=== PATIENT | female | born 1955 | race Hispanic/Latino ===

== ENCOUNTER → 2023-03-21 | Outpatient (REF) | payer MEDICARE | LOC: DX 09:43 | PROVIDERS: ATTEND Internal Medicine | DX: R53.1 Weakness (principal); G71.00 Muscular dystrophy, unspecified | CPT/HCPCS: 74230 ==

== ENCOUNTER 2024-04-06 20:45 | Inpatient (IN) | payer MEDICARE ==
[~2024-04-06] VITALS: Ht 177.8 cm; Wt 45.4 kg
[~2024-04-06 20:45] MED LIST: CYCLOBENZAPRINE5 MG PO; ULTRAM 50MG50 MG PO
[2024-04-06 21:11] LABS: BASOPHILS % 0.1 % (0.0-1.0); HEMATOCRIT 35.7 % (34.2-44.1); HEMOGLOBIN 10.3 g/dL (12.0-16.0); LYMPHOCYTES # (AUTO) 0.9 (1.0-3.2); LYMPHOCYTES % 5.1 % (18.0-39.1); MEAN CORPUSCULAR HEMOGLOBIN 30.1 pg (28-32); MEAN CORPUSCULAR HGB CONC 28.9 g/dL (31-35); MEAN CORPUSCULAR VOLUME 104.4 fL (81-99); MONOCYTES # (AUTO) 1.7 (0.2-0.8); MONOCYTES % 9.9 % (4.4-11.3); NEUTROPHILS # (AUTO) 14.1 (2.1-6.9); RED BLOOD COUNT 3.42 x10e6/uL (3.6-5.1); RED CELL DISTRIBUTION WIDTH 14.6 % (11.7-14.4); WHITE BLOOD COUNT 16.78 x10e3/uL (4.8-10.8)
[2024-04-06] MEDS: SODIUM CHLORIDE 0.9% 1000ML 1,000 ML IV ONE (21:11)
[2024-04-06 21:15] LABS: PLATELET COUNT 72 x10e3/uL (140-360)
[2024-04-06 21:26] LABS: ALBUMIN/GLOBULIN RATIO 0.9 (0.8-2.0); ANION GAP 16.4 mmol/L (8-16); BILIRUBIN,TOTAL 0.5 mg/dL (0.2-1.2); CREATININE, SERUM 0.63 mg/dL (0.57-1.11); TOTAL PROTEIN 6.5 g/dL (6.5-8.1)
[2024-04-06 21:33] LABS: TROPONIN I 0.055 ng/mL (0-0.300)
[2024-04-06 21:36] LABS: POTASSIUM 3.4 mmol/L (3.5-5.1)
[2024-04-07] VITALS (9 sets, daily range): BP systolic 94–145; BP diastolic 72–86; PULSE 60–78; RESP 12–19; TEMP 97.3–98.9; O2SAT 90–100
[2024-04-07] MEDS: SODIUM CHLORIDE 0.9% 1000ML 1,000 ML IV ONE (01:02)
[2024-04-07] MEDS ORDERED: SODIUM CHLORIDE 0.9% 1000ML 1,000 ML ONE (01:04)
[2024-04-07] MEDS ORDERED: ONDANSETRON HCL INJ 2MG/ML 2ML 2 MG/ML VIAL IV PRN (02:30)
[2024-04-07] MEDS ORDERED: Vancomycin IV 1 GM in SODIUM CHLORIDE 0.9% 250ML 250 ML IV SCH ×3 (02:30→15:00)
[2024-04-07 02:37] LABS: CLARITY,URINE CLEAR (CLEAR); COLOR,URINE YELLOW (YELLOW)
[2024-04-07 02:38] LABS: BILIRUBIN,URINE NEGATIVE (NEGATIVE); GLUCOSE, URINE NEGATIVE (NEGATIVE); KETONES,URINE NEGATIVE (NEGATIVE); LEUKOCYTE ESTERASE ,URINE NEGATIVE (NEGATIVE); NITRITE,URINE NEGATIVE (NEGATIVE); PH,URINE 5.5 (5 - 7); PROTEIN,URINE DIPSTICK NEGATIVE (NEGATIVE); URINE UROBILINOGEN 0.2 mg/dL (0.2 - 1)
[2024-04-07] MEDS ORDERED: Vancomycin IV 1 GM VIAL ONE (02:38)
[2024-04-07] MEDS ORDERED: SODIUM CHLORIDE 0.9% 250ML 250 ML ONE (02:38)
[2024-04-07] MEDS ORDERED: PIPERACILLIN/TAZOBACTAM 3.375 GM VIAL ONE (02:38)
[2024-04-07 02:41] LABS: BACTERIA,URINE MODERATE /HPF; EPITHELIAL CELLS,URINE FEW /LPF; WBC,URINE (MAN) 0-5 /HPF (0-5)
[2024-04-07 02:42] LABS: YEAST,URINE MODERATE
[2024-04-07] MEDS: SODIUM CHLORIDE 0.9% 1000ML 1,000 ML IV SCH (03:00)
[2024-04-07] MEDS ORDERED: Vancomycin IV 1 GM in SODIUM CHLORIDE 0.9% 250ML 250 ML IV ONE (03:15)
[2024-04-08] VITALS (7 sets, daily range): BP systolic 111–135; BP diastolic 69–89; PULSE 81–99; RESP 15–20; TEMP 97.7–98.9; O2SAT 94–100
[2024-04-08 06:39] LABS: EOSINOPHILS % 0.1 % (0.0-6.0); HEMOGLOBIN 8.2 g/dL (12.0-16.0); LYMPHOCYTES # (AUTO) 0.5 (1.0-3.2); LYMPHOCYTES % 6.5 % (18.0-39.1); MEAN CORPUSCULAR HEMOGLOBIN 30.8 pg (28-32); MEAN CORPUSCULAR HGB CONC 29.3 g/dL (31-35); MEAN CORPUSCULAR VOLUME 105.3 fL (81-99); MONOCYTES # (AUTO) 0.7 (0.2-0.8); MONOCYTES % 8.8 % (4.4-11.3); NEUTROPHILS # (AUTO) 6.8 (2.1-6.9); NEUTROPHILS % 83.3 % (38.7-80.0); PLATELET COUNT 50 x10e3/uL (140-360); RED BLOOD COUNT 2.66 x10e6/uL (3.6-5.1); RED CELL DISTRIBUTION WIDTH 14.1 % (11.7-14.4); WHITE BLOOD COUNT 8.17 x10e3/uL (4.8-10.8)
[2024-04-08 07:06] LABS: ALBUMIN 1.9 g/dL (3.5-5.0); ALBUMIN/GLOBULIN RATIO 0.8 (0.8-2.0); ANION GAP 10.1 mmol/L (8-16); BILIRUBIN,TOTAL 0.3 mg/dL (0.2-1.2); CALCIUM 7.7 mg/dL (8.4-10.2); CREATININE, SERUM 0.48 mg/dL (0.57-1.11); TOTAL PROTEIN 4.4 g/dL (6.5-8.1)
[2024-04-08 07:12] LABS: POTASSIUM 3.1 mmol/L (3.5-5.1)
[2024-04-09] VITALS (7 sets, daily range): BP systolic 125–147; BP diastolic 68–78; PULSE 70–94; RESP 17–18; TEMP 97.6–98.6; O2SAT 94–98
[2024-04-10] VITALS: BP 119/70; PULSE 70; RESP 20; TEMP 97.8; O2SAT 95
[2024-04-10 04:00] VITALS: BP 143/68; PULSE 68; RESP 20; TEMP 97.6; O2SAT 95
[2024-04-10 08:56] VITALS: BP 164/90; PULSE 94; RESP 18; TEMP 97.6; O2SAT 96
[2024-04-10 11:54] VITALS: BP 155/77; PULSE 81; RESP 18; TEMP 98.7; O2SAT 100
[2024-04-10 16:19] VITALS: BP 141/83; PULSE 74; RESP 14; TEMP 98.2; O2SAT 95
[2024-04-10 20:00] VITALS: BP 124/79; PULSE 78; RESP 16; TEMP 98.1; O2SAT 99
[2024-04-11] VITALS (9 sets, daily range): BP systolic 135–149; BP diastolic 70–83; PULSE 67–90; RESP 16–19; TEMP 97.2–98.9; O2SAT 95–100
[2024-04-12] VITALS (9 sets, daily range): BP systolic 121–144; BP diastolic 70–93; PULSE 66–101; RESP 16–19; TEMP 97.2–98; O2SAT 91–100
[2024-04-12] MEDS: ALBUTEROL/IPRATROPIUM 3 ML NEB NEB PRN (13:40)
[2024-04-13] VITALS (11 sets, daily range): BP systolic 114–158; BP diastolic 64–112; PULSE 75–102; RESP 16–20; TEMP 97.6–98.8; O2SAT 91–100
[2024-04-13 08:06] LABS: BASOPHILS % 0.1 % (0.0-1.0); EOSINOPHILS % 0.1 % (0.0-6.0); HEMATOCRIT 32.6 % (34.2-44.1); HEMOGLOBIN 9.7 g/dL (12.0-16.0); LYMPHOCYTES # (AUTO) 0.8 (1.0-3.2); LYMPHOCYTES % 9.6 % (18.0-39.1); MEAN CORPUSCULAR HEMOGLOBIN 30.1 pg (28-32); MEAN CORPUSCULAR HGB CONC 29.8 g/dL (31-35); MEAN CORPUSCULAR VOLUME 101.2 fL (81-99); MONOCYTES # (AUTO) 1.4 (0.2-0.8); MONOCYTES % 16.7 % (4.4-11.3); NEUTROPHILS # (AUTO) 5.9 (2.1-6.9); NEUTROPHILS % 72.4 % (38.7-80.0); PLATELET COUNT 85 x10e3/uL (140-360); RED BLOOD COUNT 3.22 x10e6/uL (3.6-5.1); RED CELL DISTRIBUTION WIDTH 13.7 % (11.7-14.4); WHITE BLOOD COUNT 8.09 x10e3/uL (4.8-10.8)
[2024-04-13 08:39] LABS: ALBUMIN 2.2 g/dL (3.5-5.0); ALBUMIN/GLOBULIN RATIO 0.6 (0.8-2.0); ANION GAP 13.8 mmol/L (8-16); BILIRUBIN,TOTAL 0.6 mg/dL (0.2-1.2); CALCIUM 8.9 mg/dL (8.4-10.2); CREATININE, SERUM 0.51 mg/dL (0.57-1.11); POTASSIUM 3.8 mmol/L (3.5-5.1); TOTAL PROTEIN 5.6 g/dL (6.5-8.1)
[2024-04-13 09:41] LABS: LYMPHOCYTES % (MANUAL) 5 % (19-48); MONOCYTES % (MANUAL) 10 % (3.4-9.0); NEUTROPHILS % (MANUAL) 85 % (40-74)
[2024-04-13 09:42] LABS: HYPOCHROMASIA MODERATE; PLATELET ESTIMATE MODERATELY DECREASED; PLATELET MORPHOLOGY COMMENT NORMAL; POLYCHROMASIA FEW; RBC MORPHOLOGY COMMENT ABNORMAL
[2024-04-14] VITALS (9 sets, daily range): BP systolic 117–146; BP diastolic 65–86; PULSE 68–84; RESP 16–18; TEMP 97.3–98.2; O2SAT 92–100
[2024-04-15] VITALS (9 sets, daily range): BP systolic 121–138; BP diastolic 77–92; PULSE 71–90; RESP 16–20; TEMP 97.3–97.9; O2SAT 96–100
[2024-04-15 06:26] LABS: HEMATOCRIT 26.4 % (34.2-44.1); HEMOGLOBIN 8.2 g/dL (12.0-16.0); LYMPHOCYTES # (AUTO) 0.7 (1.0-3.2); LYMPHOCYTES % 18.8 % (18.0-39.1); MEAN CORPUSCULAR HEMOGLOBIN 30.1 pg (28-32); MEAN CORPUSCULAR HGB CONC 31.1 g/dL (31-35); MEAN CORPUSCULAR VOLUME 97.1 fL (81-99); MONOCYTES # (AUTO) 0.7 (0.2-0.8); MONOCYTES % 18.3 % (4.4-11.3); NEUTROPHILS # (AUTO) 2.5 (2.1-6.9); NEUTROPHILS % 62.1 % (38.7-80.0); PLATELET COUNT 83 x10e3/uL (140-360); RED BLOOD COUNT 2.72 x10e6/uL (3.6-5.1); RED CELL DISTRIBUTION WIDTH 13.8 % (11.7-14.4); WHITE BLOOD COUNT 3.94 x10e3/uL (4.8-10.8)
[2024-04-15 06:56] LABS: ALBUMIN 2.2 g/dL (3.5-5.0); ALBUMIN/GLOBULIN RATIO 0.7 (0.8-2.0); ANION GAP 11.5 mmol/L (8-16); BILIRUBIN,TOTAL 0.4 mg/dL (0.2-1.2); CALCIUM 9.3 mg/dL (8.4-10.2); CREATININE, SERUM 0.48 mg/dL (0.57-1.11); POTASSIUM 3.5 mmol/L (3.5-5.1); TOTAL PROTEIN 5.4 g/dL (6.5-8.1)
[2024-04-15] MEDS ORDERED: SODIUM CHLORIDE 0.9% 1000ML 3,000 ML IV STA (21:41)
== END 2024-04-15 22:03 | disposition expired | DRG 871 ==
LOC: ER 20:53 → ERHOLD 04-07 02:22 → MED/SURG2 04-07 03:25 → UNDODISIN 04-16 01:05
PROVIDERS: ADMIT Internal Medicine; ATTEND Internal Medicine
PROC: 3E0333Z Introduction of Anti-inflammatory into Peripheral Vein, Percutaneous Approach (ICD-10-PCS; principal; 2024-04-07)
PROC: 0BH17EZ Insertion of Endotracheal Airway into Trachea, Via Natural or Artificial Opening (ICD-10-PCS; 2024-04-15)
PROC: 5A2204Z Restoration of Cardiac Rhythm, Single (ICD-10-PCS; 2024-04-15)
PROC: 5A1935Z Respiratory Ventilation, Less than 24 Consecutive Hours (ICD-10-PCS; 2024-04-15)
DX: A41.9 Sepsis, unspecified organism (principal); G93.41 Metabolic encephalopathy; J69.0 Pneumonitis due to inhalation of food and vomit; F03.93 Unspecified dementia, unspecified severity, with mood disturbance; E87.20 Acidosis, unspecified; L03.113 Cellulitis of right upper limb; I46.9 Cardiac arrest, cause unspecified; R62.7 Adult failure to thrive; G71.00 Muscular dystrophy, unspecified; E88.09 Other disorders of plasma-protein metabolism, not elsewhere classified; D69.6 Thrombocytopenia, unspecified; S51.001A Unspecified open wound of right elbow, initial encounter; D64.9 Anemia, unspecified; I44.7 Left bundle-branch block, unspecified; Z93.1 Gastrostomy status; R00.0 Tachycardia, unspecified; E86.0 Dehydration; R73.9 Hyperglycemia, unspecified; R53.81 Other malaise; Z99.3 Dependence on wheelchair; X58.XXXA Exposure to other specified factors, initial encounter
CPT/HCPCS: 36415; 70450; 71045; 80053; 80202; 81001; 82550; 83605; 84484; 85025; 87040; 87086; 92950; 93005; 94640; 94799; 99252; 99285; J0696; J2543; J7030; J7050